=== PATIENT | male | born 2005 | race African-American/Black ===

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

== ENCOUNTER 2025-04-16 10:43 | Emergency (ER) | payer MEDICAID, SELFPAY ==
--- NOTE | ~2025-04-16 | CT_ITS ---
CLINICAL HISTORY: headache, photophobia CT head without contrast Comparison: CT/FL/SR - CT HEAD/BRAIN WO IV CON - 11/05/22 11:34 EST Findings: No intra-axial mass, midline shift, hydrocephalus, or acute hemorrhage. No significant atrophy-like change or white matter disease. The visualized paranasal sinuses and mastoid air cells are normal. The orbits are within normal limits. No skull fracture. IMPRESSION: 1. No acute intracranial findings. This document has been electronically signed by: Jennifer Cruz MD on 04/16/2025 13:47:35
--- NOTE | ~2025-04-16 | CT_ITS ---
CLINICAL HISTORY: right sided neck pain CT cervical spine without contrast Comparison: None Findings: Normal vertebral body alignment. No significant degenerative change. No acute fractures or dislocations. No acute findings on limited view of the intracranial contents. No cervical fluid collections or masses. Lung apices are clear. IMPRESSION: No acute findings. This document has been electronically signed by: Jennifer Cruz MD on 04/16/2025 13:49:33
[2025-04-16 10:54] VITALS: BP 119/73; PULSE 85; RESP 16; TEMP 36.6; O2SAT 98; BMI 27.3
--- NOTE | 2025-04-16 11:44 | ED_ITS ---
HPI - General Adult General Chief complaint: Headache Stated complaint: migraine Time Seen by Provider: 04/16/25 11:43 Source: patient and family (patient's mother) Mode of arrival: ambulatory Limitations: no limitations History of Present Illness ED Provider: Roxana Arguelles PA-C HPI narrative: Patient is a 19 year old assigned male at with a history of PKU presenting to the emergency department today with a headache, nausea, and photophobia. Patient states that over the last 2-3 weeks he has had a migraine that is intermittent in intensity and over the last 5 days it has gotten worse. Patient states that his mother has migraines for which she takes preventative medications but he has not ever had one. Patient states that he is having right sided neck pain but he is able to bend his neck. Patient denies any dizziness, lightheadedness, abdominal pain, vomiting, fever, chills, blurry vision, double vision, loss of vision, chest pain, difficulty breathing, shortness of breath, back pain, night sweats, pain with urination, increased urinary frequency, increased urinary urgency, blood in his urine or stool, syncope or a near syncopal episode, recent trauma or falls, bowel incontinence, bladder incontinence, or any other complaints at this time. Related Data Previous Rx's ?Medication ?Instructions ?Recorded oseltamivir 75 mg capsule (Tamiflu) 75 mg PO BID 5 days #10 caps 11/05/22 ondansetron HCl 4 mg tablet 4 mg PO Q8-12H PRN nausea and 11/23/22 vomiting #7 tabs oxycodone 5 mg tablet 5 mg PO TID PRN pain #14 tabs 11/23/22 prednisone 10 mg tablet 10 mg PO BID #10 tabs 11/23/22 tamsulosin 0.4 mg capsule (Flomax) 0.4 mg PO BEDTIME #7 caps 11/23/22 Magic Mouthwash 10 ml PO .q6hr PRN sore throat 01/04/23 Diphen/Lido/Antacid 1:1:1 240 mL #240 mL suspension amoxicillin 875 mg tablet 875 mg PO BID #20 tabs 01/04/23 ibuprofen 600 mg tablet 600 mg PO Q6H PRN fever or pain 05/26/23 #30 tabs whyseocvge-diumsjecaqtox-chsbwila 1 cap PO Q8H PRN breakthrough 04/16/25 50 mg-300 mg-40 mg capsule migraine pain #7 caps (Fioricet) ondansetron 4 mg disintegrating 4 mg PO Q8H 3 days #9 tabs 04/16/25 tablet Allergies Allergy/AdvReac Type Severity Reaction Status Date / Time lorazepam [From Ativan] AdvReac Intermediate Anxiety Verified 04/16/25 10:58 Review of Systems 2 Constitutional: Constitutional: Reports no additional constitutional complaints, Denies chills, Denies fever(s), Reports headache(s) and Denies night sweats Eyes: Eyes: Reports no additional eye complaints, Denies blurry vision, Denies change in vision, Denies diplopia, Denies eye discharge, Denies loss of vision, Denies eye pain and Reports photophobia ENT: Denies dizziness and Reports headache(s) Cardiovascular: Cardiovascular: Reports no additional cardiovascular complaints, Denies chest pain, Denies lightheadedness, Denies Loss of Consciousness and Denies dyspnea Respiratory: Respiratory: Reports no additional respiratory complaints and Denies dyspnea Gastrointestinal: Gastrointestinal: Reports no additional gastrointestinal complaints, Denies abdominal pain, Denies melena, Denies hematochezia, Denies change in bowel habits, Denies change in stool character, Reports nausea and Denies vomiting Genitourinary: Genitourinary: Reports no additional male genitourinary complaints, Denies hematuria, Denies oliguria, Denies difficulty urinating, Denies dysuria, Denies urinary frequency, Denies urinary hesitancy, Denies urinary incontinence and Denies urinary urgency Musculoskeletal: Musculoskeletal: Reports no additional musculoskeletal complaints, Denies numbness and Denies tingling Neurologic: Denies dizziness, Reports headache(s), Denies loss of vision, Denies numbness and Denies tingling Psychiatric: Psychiatric: Reports no additional psychiatric complaints Endocrine: Endocrine: Reports no additional endocrine complaints Hematologic/Lymphatic: Hematologic/Lymphatic: Reports no additional hematologic/lymphatic complaints Allergic/Immunologic: Allergic/Immunologic: Reports no additional allergic/immunologic complaints PMFSH Past Medical History Attestation statement: The following information was validated with the patient. (all information validated with the patient's mother) Source: old records reviewed, obtained from family (patient's mother provided additional history and confirmed the history provided by the patient.) and nursing notes reviewed Medical History Classical phenylketonuria Social History Social History Alcohol intake: never Advance Directives: No Advance Directives Information Provided: Yes Current occupational status: employed Current occupation: student counselor/rt hand Physical Exam ED Vital Signs: Vital Signs - 24 hr 04/16/25 10:54 04/16/25 14:01 Temperature 97.8 F 98.4 F Pulse Rate 85 84 Respiratory Rate 16 16 Blood Pressure 119/73 131/70 Pulse Oximetry 98 100 Oxygen Delivery Method Room Air BMI result Body Mass Index 27.3 Const General: cooperative, no acute distress, alert and awake Nutritional Appearance: well nourished Orientation/consciousness: patient oriented x3 HENMT Head: Yes normal to inspection and Yes atraumatic Ears: hearing grossly normal bilaterally and external ears normal General nose exam: Normal external nose present, no nasal discharge noted and no epistaxis Face and sinus: Yes normal facial exam, No abrasion and No laceration Mouth: Normal oral and palatal mucosa present, no drooling and no muffled voice Eyes General: appearance normal, both eyes and all related structures Periorbital: periorbital findings normal Eyelids: Yes eyelids normal Conjunctivae: conjunctivae normal Pupils: Equal, round and reactive pupils present EOM: EOMs intact bilaterally Direct Ophthalmoscopy: photophobia Neck Neck: Yes normal visual inspection, Yes full ROM and Yes no lymphadenopathy Resp Effort & Inspection: normal respiratory effort and able to speak in complete sentences Neuro General: patient oriented x3, moves all extremities and CN's II-XI intact bilaterally Cranial nerves: Yes Equal, round and reactive pupils present Cognition (Neuro): normal cognition Extrem General: Yes normal to inspection, Yes full ROM and Yes capillary refill normal Psych Appearance: grossly normal Mental Status: mental status grossly normal Affect: normal affect Attitude: cooperative Thought process: Normal thought process present Thought content: Normal thought content present Insight: Good insight present (Psych) Medications Administered Discontinued Medications Generic Name Dose Route Start Last Admin Trade Name Freq PRN Reason Stop Dose Admin Acetaminophen/Butalbital/Caffeine 1 tab 04/16/25 14:08 04/16/25 14:34 Butalb/Acetamin/Caff 50/325/40 Tablet PO 04/16/25 14:09 1 tab ONCE ONE Administration Diphenhydramine HCl 25 mg 04/16/25 11:55 04/16/25 12:32 Diphenhydramine Hcl 50 Mg/Ml Vial IVPUSH 04/16/25 11:56 25 mg ONCE ONE Administration Sodium Chloride 1,000 mls @ 999 mls/hr 04/16/25 12:00 04/16/25 13:30 Ns IV 04/16/25 13:00 Infused .Q1H1M CANDELARIO Infusion Ketorolac Tromethamine 15 mg 04/16/25 11:55 04/16/25 12:32 Ketorolac Tromethamine 15 Mg/Ml Vial IM 04/16/25 11:56 15 mg ONCE ONE Administration Ondansetron HCl 4 mg 04/16/25 11:55 04/16/25 12:32 Ondansetron Hcl 4 Mg/2 Ml Vial IVPUSH 04/16/25 11:56 4 mg ONCE ONE Administration Medical Decision Making Medical Decision Making MDM Narrative: Patient is a 19 year old assigned male at with a history of PKU presenting to the emergency department today with a headache, nausea, and photophobia. Patient's physical exam was unremarkable. Patient's blood work was unremarkable. Patient's CT head and c-spine showed no acute process. I explained my physical exam findings as well as all test results to the patient and the patient's mother. Patient's clinical presentation is most consistent with a migraine headache. I answered all questions asked by the patient and the patient's mother. Patient received IV Toradol, Benadryl, and Zofran as well as PO Fioricet which, upon re-evaluation, he stated it helped his symptoms significantly. I stressed the importance of the patient taking his medication as directed (either prescribed or as the over the counter packaging recommends). I stressed the importance of the patient following up with his primary care provider and a neurologist. I stressed the importance of the patient returning to the emergency department immediately if his symptoms were to worsen or if he were to develop any dizziness, shortness of breath, difficulty breathing, chest pain, blurry vision, loss of vision, nausea, vomiting, abdominal pain, fever, chills, back pain, or any other complaints. Patient and the patient's mother verbalized agreement and understanding with this treatment plan and discharge. Differential Diagnosis Differential Diagnoses: The differential diagnosis associated with the presentation includes Migraine headache Headache Tension headache Admission/Observation Consideration of admission/observation: Escalation of care including admission/observation considered Patient would have been admitted to the hospital had his work up had any findings where hospital admission was appropriate and his clinical presentation warranted hospital admission. Lab Data [facility] Lab Attestation statement: I reviewed the patient's lab results. My interpretation of these results are in the [facility] Rationale portion of this note. 04/16/25 12:06 04/16/25 12:06 Labs: Lab Results 04/16/25 Range/Units 12:06 WBC 5.3 (4.8-10.8) X10*3/uL RBC 5.30 (4.60-5.80) X10*6/uL Hgb 14.4 (14.0-18.0) g/dl Hct 42.8 (42.0-52.0) % MCV 80.8 (80.0-98.0) fL MCH 27.2 (27.0-33.0) pg MCHC 33.6 (31.0-36.0) g/dl RDW 12.2 (11.0-16.0) % Plt Count 207 (160-400) X10*3/uL MPV 10.3 (9.4-12.4) fL Immature Gran % (Auto) 0.8 H (0.0-0.4) % Neut % (Auto) 59.7 (45-73) % Lymph % (Auto) 32.6 (20-40) % [place] % (Auto) 6.1 (2-11) % Eos % (Auto) 0.2 (0-4) % Baso % (Auto) 0.6 (0-2) % Lymph # (Auto) 1.7 (1.2-4.9) X10*3/uL [place] # (Auto) 0.3 (0.1-1.2) X10*3/uL Eos # (Auto) 0.0 (0.0-0.4) X10*3/uL Baso # (Auto) 0.0 (0.0-0.2) X10*3/uL Abs Immat Gran (auto) 0.04 H (0.00-0.03) X10*3/uL Absolute Neuts (auto) 3.2 (2.0-8.3) x10*3/uL Absolute Nucleated RBC 0.000 (0.0-0.012) X10*3/uL Nucleated RBC % (auto) 0.0 (0.0-0.2) /100WBC ESR 2 (0-15) MM/HR Sodium 141 (135-145) mmol/L Potassium 3.9 (3.3-5.1) mmol/L Chloride 109 H (96-108) mmol/L Carbon Dioxide 23 (22-29) mmol/L Anion Gap 13 (12-20) BUN 13 (9-16) mg/dL Creatinine 0.84 (0.5-1.4) mg/dL Estim Creat Clear Calc 137.8 Estimated GFR > 60 Random Glucose 96 (60-115) mg/dL Calcium 9.4 (8.4-10.2) mg/dL Total Bilirubin 0.4 (0.0-1.0) mg/dL AST 23 (5-37) U/L ALT 27 (0-40) U/L Alkaline Phosphatase 89 (39-117) U/L C-Reactive Protein < 0.10 (< or = 0.50) mg/dL Total Protein 7.3 (6.5-8.0) g/dL Albumin 4.6 (3.5-5.0) g/dL Influenza Type A (PCR) NEGATIVE (Negative) Influenza Type B (PCR) NEGATIVE (Negative) RSV RNA Qual (PCR) NEGATIVE (Negative) SARS-CoV-2 RNA (RT-PCR) NEGATIVE (Negative) Independent Interpretation I performed an independent interpretation of an: CT Scan Interpretation: My interpretation is in agreement with the radiologist's impression of these imaging studies. L Report Number: [id number]: Total DLP = 551.00 mGy-cm CLINICAL HISTORY: right sided neck pain CT cervical spine without contrast Comparison: None Findings: Normal vertebral body alignment. No significant degenerative change. No acute fractures or dislocations. No acute findings on limited view of the intracranial contents. No cervical fluid collections or masses. Lung apices are clear. IMPRESSION: No acute findings. This document has been electronically signed by: Jennifer Cruz MD on 04/16/2025 13:49:33 Dictated By: Jennifer Cruz MD Signed By: Electronically signed by Jennifer Cruz MD 04/16/25 1650 Report Number: [id number]: Total DLP = 675.00 mGy-cm CLINICAL HISTORY: headache, photophobia CT head without contrast Comparison: CT/MD/SR - CT HEAD/BRAIN WO IV CON - 11/05/22 11:34 EST Findings: No intra-axial mass, midline shift, hydrocephalus, or acute hemorrhage. No significant atrophy-like change or white matter disease. The visualized paranasal sinuses and mastoid air cells are normal. The orbits are within normal limits. No skull fracture. IMPRESSION: 1. No acute intracranial findings. This document has been electronically signed by: Jennifer Cruz MD on 04/16/2025 13:47:35 Dictated By: Jennifer Cruz MD Signed By: Electronically signed by Jennifer Cruz MD 04/16/25 1491 Radiology Impression Discussion of test interpretation with radiology: I have reviewed the radiologist's reading. Independent Historian Clinical information obtained from an independent historian. History obtained from or confirmed by: Parent (patient's mother provided additional history and confirmed the history provided by the patient.) Prescription Management I considered prescription management with: Pain Medication (patient prescribed pain medication) Discharge Plan Discharge Clinical Impression: Migraine Patient Disposition: Home, Self-Care Instructions: Migraine Headache (ED) Additional Instructions: Follow up with your primary care provider and a neurologist. Return to the emergency department immediately if your symptoms worsen or if you develop any numbness, tingling, dizziness, shortness of breath, difficulty breathing, chest pain, blurry vision, loss of vision, nausea, vomiting, abdominal pain, fever, chills, back pain, or any other complaints. Please see the information below about our Patient Portal. If you are not yet enrolled in the [facility] Patient Portal, you will receive an enrollment email invitation following your visit to any [facility] care setting. You may also self-enroll in the Patient Portal by visiting our website: [email or web address] The following information is required to access the Patient Portal: - Your [facility] Medical Record Number - Your personal home email address (must match what is in your electronic medical record, Registration staff can assist with this) - Name - Date of Capabilities of the Patient Portal: - Message some providers - View upcoming appointments - Access your health summary, medical history, and visit history - View current conditions and allergies - View procedure and lab results - View your medications, including guidelines, side effects, and precautions - Complete pre-appointment questionnaires requested by your provider - Ready summary reports of your office visits and procedures To access the Patient Portal Mobile [employer], follow these directions: - Search [employer] in the [employer] Store or [employer] Store - Download the Sari - Search for [facility] - Enter your login/password Prescriptions: New jugozgvkzu-rspcnuwdbkeaf-kohk [Fioricet] 50-300-40 mg capsule 1 cap PO Q8H PRN (Reason: breakthrough migraine pain) Qty: 7 0RF ondansetron 4 mg tablet,disintegrating 4 mg PO Q8H 3 Days Qty: 9 0RF No Action prednisone 10 mg tablet 10 mg PO BID Qty: 10 0RF tamsulosin [Flomax] 0.4 mg capsule 0.4 mg PO BEDTIME Qty: 7 0RF oxycodone 5 mg tablet 5 mg PO TID PRN (Reason: pain) Qty: 14 0RF Rx Instructions: Partial Fill upon patient request. ondansetron HCl 4 mg tablet 4 mg PO Q8-12H PRN (Reason: nausea and vomiting) Qty: 7 0RF oseltamivir [Tamiflu] 75 mg capsule 75 mg PO BID 5 Days Qty: 10 0RF amoxicillin 875 mg tablet 875 mg PO BID Qty: 20 0RF Magic Mouthwash Diphen/Lido/Antacid 1:1:1 240 mL suspension 10 ml PO .q6hr PRN (Reason: sore throat) Qty: 240 0RF Rx Instructions: Lidocaine Viscous 2 % 80mL; diphenhydramine 12.5 mg/5 mL 80mL; aluminum-mag hydrox-simeth [id number]/5mL 80mL ibuprofen 600 mg tablet 600 mg PO Q6H PRN (Reason: fever or pain) Qty: 30 0RF Referrals: [facility] Neuro/Sleep [Provider Group] (Call to establish and follow up with a neurologist for migraine management. ) Gera Saldana MD [Primary Care Provider] - Stand Alone Forms: Work/School Release Print Language: Slovenian
[2025-04-16 12:12] LABS: MANUAL DIFF FLAG NO
[2025-04-16 12:14] LABS: Basophils Percent Auto 0.6 % (0-2); Eosinophils Percent Auto 0.2 % (0-4); Hematocrit 42.8 % (42.0-52.0); Hemoglobin 14.4 g/dl (14.0-18.0); Imm Gran Abs Auto 0.04 X10*3/uL (0.00-0.03); Imm Gran Pct Auto 0.8 % (0.0-0.4); Lymphocytes Absolute Auto 1.7 X10*3/uL (1.2-4.9); Lymphocytes Percent Auto 32.6 % (20-40); Mean Corpuscular HGB Conc 33.6 g/dl (31.0-36.0); Mean Corpuscular Hemoglobin 27.2 pg (27.0-33.0); Mean Corpuscular Volume 80.8 fL (80.0-98.0); Mean Platelet Volume 10.3 fL (9.4-12.4); Monocytes Absolute Auto 0.3 X10*3/uL (0.1-1.2); Monocytes Percent Auto 6.1 % (2-11); Neutrophils Absolute Auto 3.2 x10*3/uL (2.0-8.3); Neutrophils Percent Auto 59.7 % (45-73); Platelet Count 207 X10*3/uL (160-400); Red Cell Distribution Width 12.2 % (11.0-16.0); White Blood Count 5.3 X10*3/uL (4.8-10.8)
[2025-04-16 12:28] LABS: Alanine Aminotransferase 27 U/L (0-40); Albumin Level 4.6 g/dL (3.5-5.0); Alkaline Phosphatase 89 U/L (39-117); Anion Gap 13 (12-20); Aspartate Amino Transferase 23 U/L (5-37); Bilirubin Total 0.4 mg/dL (0.0-1.0); Blood Urea Nitrogen 13 mg/dL (9-16); C Reactive Protein < 0.10 mg/dL (< or = 0.50); Calcium 9.4 mg/dL (8.4-10.2); Carbon Dioxide 23 mmol/L (22-29); Chloride 109 mmol/L (96-108); Creatinine Clr Calc Pharmacy 137.8; Estimated Glomerular Filt Rate > 60; Glucose Random 96 mg/dL (60-115); Potassium 3.9 mmol/L (3.3-5.1); Sodium 141 mmol/L (135-145); Total Protein 7.3 g/dL (6.5-8.0)
[2025-04-16] MEDS: diphenhydrAMINE HCL 50 MG/ML VIAL 25 MG IVPUSH (12:32)
[2025-04-16] MEDS: Ketorolac Tromethamine 15 MG/ML VIAL IM (12:32)
[2025-04-16] MEDS: ondansetron HCL 4 MG/2 ML VIAL IVPUSH (12:32)
[2025-04-16] MEDS: 0.9 % Sodium Chloride 1,000 ML 999 ML IV (12:32)
[2025-04-16 12:46] LABS: Erythrocyte Sedimentation Rate 2 MM/HR (0-15)
[2025-04-16 12:56] LABS: Influenza A PCR NEGATIVE (Negative); Influenza B PCR NEGATIVE (Negative); Resp Syncy Virus RNA Qual PCR NEGATIVE (Negative); SARS COV2 PCR INHOUSE NEGATIVE (Negative)
[2025-04-16 14:01] VITALS: BP 131/70; PULSE 84; RESP 16; TEMP 36.9; O2SAT 100
[2025-04-16] MEDS: Butalb/Acetamin/Caff 50/325/40 TABLET 1 TAB PO (14:34)
[2025-04-16 15:44] VITALS: BP 131/70; PULSE 84; RESP 16; TEMP 36.9; O2SAT 100
== END 2025-04-16 15:30 | disposition home or self-care (01) ==
PROVIDERS: Physician Assistant Medical; Emergency Provider Emergency Medicine; PCP Internal Medicine
DX: G43.909 Migraine, unspecified, not intractable, without status migrainosus (principal); Z03.818 Encounter for observation for suspected exposure to other biological agents ruled out
CPT/HCPCS: 0241U; 70450; 72125; 80053; 85025; 85652; 86140; 96361; 96372; 96374; 96375; 99284; J1200; J1885; J2405

== ENCOUNTER → 2025-04-16 11:55 | Outpatient (BNV) | payer MEDICAID, SELFPAY | PROVIDERS: Emergency Provider Emergency Medicine; PCP Internal Medicine; Visit Provider Radiology Diagnostic Radiology | DX: M54.2 Cervicalgia (principal); R51.9 Headache, unspecified | CPT/HCPCS: 70450; 72125 ==